=== PATIENT | male | born 2005 | race Caucasian/White ===

== ENCOUNTER 2024-11-20 03:50 | Emergency (ER) | payer OTHER, SELFPAY ==
[2024-11-20 03:57] VITALS: BP 126/101; PULSE 83; RESP 22; TEMP 36.6; O2SAT 97; BMI 28.0
--- NOTE | 2024-11-20 04:36 | ED.GENADULT ---
HPI - General Adult General Chief complaint: Shortness of Breath/Dyspnea Stated complaint: asthma, difficulty breathing Time Seen by Provider: 11/20/24 04:21 Source: patient Mode of arrival: ambulatory Limitations: no limitations History of Present Illness HPI narrative: 19-year-old male presents to the emergency department in the wee hours with a 2 day history of cough. Productive of some mild mucus. The last few hours has been having bilateral bandlike lower chest pain that wraps around the lower chest with deep breath. Reports a subjective feeling of shortness of breath but does not have any limitations of speech or activity. No history of cardiac disease, no palpitations. Reports a history of ?asthma? in the past, tried using a friend's albuterol with no improvement in symptoms. Has taken a little bit of Benadryl, ibuprofen and Tylenol, subtherapeutic doses and has not found these helpful. No hemoptysis, no vomiting, no fever. No pertinent travel or known sick exposures. No history of DVT or PE. Reports his past medical history is benign with the exception of a history of ?asthma?. No known drug allergies, nonsmoker. ROS is notable for the respiratory symptoms and chest symptoms as above, otherwise denies times 12 systems. Related Data Home Medications ?Medication ?Instructions ?Recorded ?Confirmed No Known Home Medications 11/20/24 11/20/24 Allergies Allergy/AdvReac Type Severity Reaction Status Date / Time No Known Drug Allergies Allergy Verified 11/20/24 04:01 [facility] Social History Non-prescribed substance use: denies use service: No Exam Const: Vital Signs, click to edit/add: Vital Signs - 24 hr 11/20/24 03:57 Temperature 98 F Pulse Rate [Pulse Oximeter] 83 Respiratory Rate 22 Blood Pressure [Ri ght Upper Arm] 126/101 H Pulse Oximetry 97 Oxygen Delivery Me thod Room Air Documenting provider has reviewed patient's vital signs: yes Other: Anxious but redirectable. Insight seems fair. Well nourished well hydrated HENMT: Common normals: moist oral mucous membranes Other: Mild erythema to the posterior pharynx but no exudate. Nose with some mild clear mucus rhinorrhea only Eye: Common normals: conjunctivae normal General eye: normal appearance of both eyes Conjunctiva: conjunctiva(e) normal Neck & C-Spine: Common normals: full ROM and no lymphadenopathy General: normal visual inspection Resp: Common normals: normal respiratory effort and clear to auscultation bilaterally Effort & inspection: able to speak in complete sentences Auscultation: clear to auscultation bilaterally Other: Mildly decreased air movement but no obvious wheeze or rhonchi. No crackles. Cardio: Common normals: regular rate, regular rhythm, S1 normal heart sound, S2 normal heart sound and no murmurs Rate: regular rate Rhythm: regular rhythm Heart sounds: S1 normal and S2 normal Back & Pelvis: Common normals: thoracic and lumbar spine normal to inspection Extremity: Common normals: normal to inspection and normal capillary refill Psych: Appearance: grossly normal Activity/motor behavior: appropriate eye contact Insight: fair Judgement: fair Skin: Common normals: no rashes or lesions noted General skin exam: no rashes or lesions noted Course Course ED Course: 19-year-old male with reported cough and shortness of breath with pleuritic type chest pain with deep breath, bilateral. Suspect upper respiratory infection and viral pleurisy. Cannot exclude acute cardiac process, asthma exacerbation, pneumonia, bronchitis, COVID. Unlikely to be pulmonary embolism based on the fact that he does not have exertional symptoms, hypoxia or tachycardia. Will administer DuoNeb, EKG and re-evaluate. Reevaluation(s) Time of Reevaluation #1: 05:07 Reevaluation #1: Re-evaluated patient. He says he feels slightly better after the neb treatment but still has that pleuritic type chest pain. Repeat exam showing still no wheeze, rales or rhonchi, stable air movement. Normal EKG reviewed as well. Counseled patient this is most likely a viral upper respiratory infection that has some pleuritic type features. There is no evidence of severe disease. Viral swabs are negative. He did not respond to albuterol both with a trial of a friend's medication or here in the ED, I do not recommend a prescription for this at this time. Counseled on Tylenol and ibuprofen and reviewed alarm symptoms that would warrant ED evaluation. Let him know symptoms can last up to a couple of weeks. He verbalizes understanding and agreement. He is cleared to return to all work and school duties. Vital Signs Vital signs: Initial Vital Signs Temperature 98 F 09/08/25 03:57 Temperature Source Temporal Artery Scan 11/20/24 03:57 Pulse Rate 83 11/20/24 03:57 Respiratory Rate 22 11/20/24 03:57 Blood Pressure 126/101 H 11/20/24 03:57 Blood Pressure Mean 109 H 11/20/24 03:57 Blood Pressure Position Sitting 11/20/24 03:57 Pulse Oximetry 97 11/20/24 03:57 Oxygen Delivery Method Room Air 11/20/24 03:57 Vital Signs Temperature 98 F 11/20/24 03:57 Pulse Rate 83 11/20/24 03:57 Respiratory Rate 22 11/20/24 03:57 Blood Pressure 126/101 H 11/20/24 03:57 Pulse Oximetry 97 11/20/24 03:57 Oxygen Delivery Method Room Air 11/20/24 03:57 Temperature 98 F 11/20/24 03:57 Pulse Rate 83 11/20/24 03:57 Respiratory Rate 22 11/20/24 03:57 Blood Pressure 126/101 H 11/20/24 03:57 Pulse Oximetry 97 11/20/24 03:57 Oxygen Delivery Method Room Air 11/20/24 03:57 Medical Decision Making Lab Data Lab results reviewed: Yes I reviewed the patient's lab results Lab results narrative: Viral swabs negative, as expected Labs: Lab Results 11/20/24 Range/Units 04:05 SARS-CoV-2 (PCR) Negative SARS-CoV-2 (Negative) Influenza Type A (PCR) Negative PCR FLU A (Negative) Influenza Type B (PCR) Negative PCR FLU B (Negative) RSV (PCR) Negative PCR RSV (Negative) ECG Data Attestation: I personally reviewed and interpreted this ECG as follows: Prior ECG tracings: not available for review Interpretation: Sinus rhythm with a rate of 64. No significant ST or T-wave abnormalities. Normal intervals and axis. GoodR-wave progression, normal EKG Discharge Plan Discharge Clinical Impression: Acute upper respiratory infection, Pleurisy Patient Disposition: Home w/ Parent or Adult Condition: Stable Instructions: Pleurisy (DC) Additional Instructions: As we discussed, everything is checking out normally here in the ED. There are no signs of heart problems, low oxygen or abnormalities on your exam. This is most likely caused by a viral upper respiratory infection. Sometimes these inflamed the lining of the lungs and can cause pain across the lower ribs, especially with deep breath and movement. Symptoms can last up to a couple of weeks. Complications are pretty rare but if you have severe persistent symptoms, high fevers, coughing up of blood or other severe symptoms, you should be re-evaluated. Symptoms tend to last up to about 2 weeks. Continue drinking lots of fluids. Use Tylenol 1000 mg every 6 hours as needed for discomfort and or ibuprofen 600 mg every 6 hours. Cough suppressants do not tend to be terribly helpful but are not harmful if he wanted to try Mucinex. It is okay to use Benadryl, melatonin or other dental sleep aids to help you sleep at night. You are cleared to return to work, school and all duties today. Activity Level: No Restrictions Discharge Diet: Regular Prescriptions: No Action No Known Home Medications Stand Alone Forms: [facility] Info Instructions
[2024-11-20] MEDS: IPRAT-ALBUT 0.5-2.5 MG/3 ML NEB 1 NEB IH (04:40)
[2024-11-20 04:45] LABS: PCR FLU A Negative PCR FLU A (Negative); PCR FLU B Negative PCR FLU B (Negative); PCR RSV Negative PCR RSV (Negative); SARS PCR* Negative SARS-CoV-2 (Negative)
--- OUTSIDE RECORDS SUMMARY | 2024-11-20 05:17 | XMS_ITS | Clinical Summary ---
Author Organization [facility] Address [address] [place] [id number] Care Team Providers Care Customer Sales Representative Name Role Phone Unknown, Doctor Primary Care Provider Unavailabl e Allergies No known active allergies Medications No known medications Immunizations Immunization Administration Dates Next Due COVID-19 vaccine ([employer] NTAppy Couple 30mcg/0.3mL) PF, MDV 09/04/2020,08/14/2020 DTaP 10/12/2008, 5,02/29/2004,12/13,2003 HIB-HepB (Comvax) 09/04/2004,2003,10/15/19 04 Hepatitis A (Peds) 06/07/2014,11/08/2013 Inactivated Polio Vaccine 02/29/2004,2003, 2003 Influenza Virus, Unspecified 02/27/2014 Influenza, IIV3 (Age 6-35 mos) 02/11/2010,2009 Influenza, IIV3 (Age >=3 years) 01/16/2006 Influenza, IIV4 02/23/2017,02/04/2016 Influenza,LAIV3 Live Intrana laura (Flumist) 01/13/2007 Influenza,LAIV4 Live Intrana laura (Flumist) 01/13/2007 MMR 10/12/2008,11/24/2004 Meningococcal Vaccine (Menactra) 12/12/2020,10/13 Pneumococcal conj 7-Valent (Prevnar 7) 0 09/04/2004,02/29/2004,2003,10/14 Polio Virus, Unspecified 10/12/2008 Tdap 10/28/2015 Varicella Vaccine 10/12/2008,09/04/2004 Social History Tobacco Use Types Packs/Day Years Used Date Smoking Tobacco: Never Passive Smoke Exposure: Never Smokeless Tobacco: Never Tobacco Cessation:Counseling Given: Not Answered Alcohol Use Standard Drinks/Week Comments Not Currently 0 (1 standard drink = 0.6 oz pur e alcohol) PHQ-2 Answer Date Recorded PHQ-2 TOTAL SCORE 0 07/14/2023 Social Connections Answer Date Recorded Do you often feel lonely or isolated from those around you? 0 04/30/2023 Financial Resource Strain Answer Date R ecorded Difficulty of Paying Living Expenses 3 07/14/2023 Difficulty of Paying Living Expenses Not on file 07/14/2023 Food Insecurity Answer Date Recorded Do you worry your food will run out before you are able to buy more? 1 04/30/2023 Transportation Needs Answer Date Record ed Does lack of transportation keep you from medica l appointments? 1 04/30/2023 Does lack of transportation keep you from work, meetings or getting things that you need? 1 04/30/2023 Housing Stability Answer Date Recorded What is your housing situation today? 1 04/30/2023 Utilities Answer Date Recorded Do you have trouble paying f or utilities (for example, heat, electricity, water, phone)? 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 Gender Identity Not on file Sexual Orientation Not on file Obstetrics History Last Filed Vital Signs Vital Sign Reading Time Taken Comments Blood Pressure 114/6 07/14/2023 10:25 AM CDT Pulse 64 07/14/2023 10:25 AM CDT Temperature 36.6 C (97.9 F) 07/14/2023 10:25 AM CDT Respiratory Rate 18 04/30/2023 2:44 PM ELECTRONIC PREPRESS SYSTEM OPERATOR Oxygen Saturation 99% 04/30/2023 2:44 PM ELECTRONIC PREPRESS SYSTEM OPERATOR Inhaled Oxygen Concentration - - Weight 99.8 kg (220 lb) 07/14/2023 10:25 AM CDT Height 193 cm (6' 4) 07/14/2023 10:25 AM CDT Body Mass Index 26.78 07/14/2023 10:25 AM CDT Plan of Treatment Health Maintenance Due Date Last Done Comments HIV for age 15-65 08/22/2018 HPV series for age 9-45 (1 - Male 3-dose series) 08/22/2018 Hepatitis C screening for age 18-79 08/22/2021 BMI (ht and wt on same day) for age 18+ 07/13/2024 07/14/2023 Depression screening for age 12+ 07/13/2024 07/14/2023 COVID-19 vaccine series ( season) 2024 09/04/2020, 08/14/2020 Influenza Vaccine (#1) 2024 7, 02/04/2016, 02/27/2014, Additional history exists Tetanus booster 10/27/2025 10/28/2015 RSV vaccine for adults or (1 - 1-dose 75+ series) 08/22/2078 Hepatitis B series for 19+ Completed 09/04, 2003, 2003 Pneumococcal series for age 6-49 Aged Out 09/04/2004, 02/29/2004, 2003, Additional history exists No longer eligible based on patient's age to complete this topic Meningococcal series for age 11-21 Completed 12/12/2020, 10/28/2015 Insurance [facility] Care Teams Customer Sales Representative Relationship Specialty Start Date End Date Unknown, Doctor . PCP - General Emergency Medicine 03/14/11
--- OUTSIDE RECORDS SUMMARY | 2024-11-20 05:17 | XMS_ITS | Clinical Summary ---
Author Organization [facility] Address [address], [place] [address] Care Team Providers Care Slope Hoist Operator Name Role Phone Found, No Pcp MD Primary Care Provider Unavailab le Source Comments You are receiving this document as you are listed as the primary care provider,follow-up provider, or the patient has been referred to you for consultation.This is in compliance with the Medicare andMedicaid EHR Incentive Program,which states Providers who transition their patient to another setting of careor provider of care or refers their patient to another provider of care shouldprovide summary care record for each transition of care or referral. [facility] Social History Tobacco Use Types Packs/Day Years Used Date Smoking Tobacco: Never Alcohol Use Standard Drinks/Week Comments Not Asked 0 (1 standard drink = 0.6 oz pur e alcohol) Sex and Gender Information Value Date Recorded Sex Assigned at Not on file Legal Sex Male 6:48 AM CDT Gender Identity Not on file Sexual Orientation Not on file Last Filed Vital Signs Vital Sign Reading Time Taken Comments Blood Pressure - - Pulse 83 03/14/2011 10:14 AM [employer] Temperature 37 C (98.6 F) 03/14/2011 10:14 AM [employer] Respiratory Rate - - Oxygen Saturation 98% 03/14/2011 10:14 AM [employer] Inhaled Oxygen Concentration - - Weight 28.6 kg (63 lb) 03/14/2011 10:14 AM [employer] Height - - Body Mass Index - - Plan of Treatment Health Maintenance Due Date Last Done Comments Hep C Screening (Preventive Services) 2003 MenB Immunization Discussion 2003 HPV Vaccine (1 - Male 3-dose series) 08/22/2018 HIV Screening (Preventive Services) 2019 Adult Preventive Visit 08/22/2021 HepB Vaccine (1) 08/22/2022 COVID-19 Vaccine (3 - season) 2024 09/04/2020, 08/14/2020 Influenza Vaccine (#1) 2024 7, 02/04/2016, 02/27/2014, Additional history exists DTaP/Tdap/Td Vaccine (7 - Tdap) 10/27/2025 10/28/2015, 10/12/2008, 11/24/2004, Additional history exists Zoster/Shingles Vaccine (1 of 2) 08/22/2053 Hib Vaccine Completed 09/04/2004, 03/2003, 2003 Pneumococcal Vaccine Aged Out 09/04/2004, 02/29/2004, 2003, Additional history exists No longer eligible based on patient's age to complete this topic IPV (Polio) Vaccine Completed 10/12/2008, 02/29/2004, 2003, Additional history exists HepA Vaccine Completed 06/07/2014, 11/08/2013 MCV4 Vaccine Completed 12/12/2020, 10/28/2015 Care Teams Slope Hoist Operator Relationship Specialty Start Date End Date Found, No Pcp, [address] [place] [address] PCP - General 02/07/24
== END 2024-11-20 05:23 | disposition home or self-care (01) ==
PROVIDERS: Emergency Provider Family Medicine
DX: J06.9 Acute upper respiratory infection, unspecified (principal); R09.1 Pleurisy
CPT/HCPCS: 87631; 93005; 94640; 99283; 99284